=== PATIENT | female | born 1975 | race Two or more races ===

== ENCOUNTER 2022-05-20 22:30 | Emergency (ER) | payer OTHER ==
[~2022-05-20] VITALS: Ht 172.7 cm; Wt 108.0 kg
--- NOTE | 2022-05-20 23:50 | NUR ---
TO ER BED 1. NEL [id number] FROM HOME C/O ABD PAIN SINCE 1829. +NAUSEA, DIARRHEA. PT IS ALERT AND ORIENTED. RR EVEN AND NON LABORED. CONNECTED TO MONITOR
--- NOTE | 2022-05-20 23:57 | NUR ---
URINE COLLECTED AND SENT TO LAB
[2022-05-21] MEDS ORDERED: ONDANSETRON HCL/PF 4 MG/2 ML VIAL IVP ONE
[2022-05-21] MEDS ORDERED: IV NS 0.9% 500 ML BAG IV ONE
[2022-05-21] MEDS ORDERED: KETOROLAC TROMETHAMINE INJ 30 MG/ML VIAL IV ONE
[2022-05-21] MEDS ORDERED: ONDANSETRON HCL/PF 4 MG/2 ML VIAL ONE (00:07)
[2022-05-21] MEDS ORDERED: KETOROLAC TROMETHAMINE INJ 30 MG/ML VIAL ONE (00:07)
[2022-05-21 00:21] LABS: BILIRUBIN,URINE NEGATIVE (NEGATIVE); COLOR,URINE YELLOW (YELLOW); LEUKOCYTE ESTERASE ,URINE NEGATIVE (NEGATIVE); NITRITE, URINE NEGATIVE (NEGATIVE); PH,URINE 7.5 (5.0-8.0); PROTEIN,URINE NEGATIVE (NEGATIVE); UGLUCOSE NEGATIVE (NEGATIVE); UROBILINOGEN,URINE 0.2 EU/dL (0.2)
[2022-05-21 00:27] LABS: BASOPHILS % (AUTO) 0.5 % (0.0-2.0); EOSINOPHILS % (AUTO) 2.9 % (0.0-6.0); HEMATOCRIT 37 % (33-45); HEMOGLOBIN 12.2 g/dL (11.5-14.8); LYMPHOCYTES # (AUTO) 1.4 K/uL (0.8-4.8); MEAN CORPUSCULAR HGB CONC 33 g/dl (31.0-36.0); MEAN CORPUSCULAR VOLUME 103 fL (82-100); MONOCYTES # (AUTO) 0.4 K/uL (0.1-1.30); MONOCYTES % (AUTO) 7.2 % (2.0-12.0); NEUTROPHILS # (AUTO) 3.4 K/uL (1.8-8.9); NEUTROPHILS % (AUTO) 63.4 % (43.0-81.0); PLATELET COUNT (AUTO) 207 K/uL (150-450); RED BLOOD CELL COUNT(AUTO) 3.59 MIL/uL (4.0-5.2); WHITE BLOOD COUNT (AUTO) 5.4 K/uL (4.3-11.0)
--- NOTE | 2022-05-21 00:37 | NUR ---
[facility]
--- NOTE | 2022-05-21 00:37 | NUR ---
IV EDUIN [facility], [facility]
[2022-05-21 00:40] LABS: CALCIUM, SERUM 8.5 mg/dL (8.5-10.1); CREATININE 0.9 mg/dL (0.6-1.3); POTASSIUM 3.8 mmol/L (3.5-5.1)
[2022-05-21 00:43] LABS: ALBUMIN 3.5 g/dL (3.4-5.0); BILIRUBIN,DIRECT 0.1 mg/dL (0.0-0.2); BILIRUBIN,TOTAL 0.2 mg/dL (0.2-1.0)
--- NOTE | 2022-05-21 00:45 | NUR ---
PT BACK FROM CT VIA GURNEY WITHOUT INCIDENT
[2022-05-21 01:14] LABS: BACTERIA,URINE Rare /HPF (None Seen); SQUAMOUS EPITHELIAL CELL,UR Rare /HPF (None Seen); WBC,URINE 0-2 /HPF (0-3)
--- NOTE | 2022-05-21 02:10 | NUR ---
IV removed. Catheter intact and site benign. Pressure and 4x4 applied to site. No bleeding noted.
--- NOTE | 2022-05-21 02:10 | NUR ---
Patient discharged to home in stable condition. Written and verbal after care instructions given. Patient verbalizes understanding of instruction.
[2022-05-21 02:31] VITALS: BP 151/90
== END 2022-05-21 02:31 | disposition home or self-care (01) ==
LOC: ER 22:32
DX: R10.12 Left upper quadrant pain (principal); R11.0 Nausea; Z88.8 Allergy status to other drugs, medicaments and biological substances
CPT/HCPCS: 99284; 74176; 85025; 80048; 83690; 80076; 81001; 36415; 85730; 96374; 96375; J1885; J2405; J7040

== ENCOUNTER 2022-05-31 01:26 | Emergency (ER) | payer OTHER ==
[~2022-05-31] VITALS: Ht 172.7 cm; Wt 95.3 kg
--- NOTE | 2022-05-31 01:55 | NUR ---
TO ER BED 3. [id number] FROM HOME FOR CONSTIPATION. PT IS ALERT AND ORIENTED. RR EVEN AND NON LABORED. CONNECTED TO MONITOR
--- NOTE | 2022-05-31 02:24 | NUR ---
SECTION LEADER SCREEN PRINTING AT PT'S BEDSIDE
[2022-05-31] MEDS ORDERED: MINERAL OIL 133 ML (PYXIS) 1 EA ENEMA RC ONE ×2 (03:00→03:11)
[2022-05-31] MEDS ORDERED: NA PHOS,M-B/NA PHOS,DI-BA 1 EA ENEMA RC ONE (03:10)
--- NOTE | 2022-05-31 03:33 | NUR ---
PT AMBULATED TO BATHROOM, STEADY GAIT NOTED
--- NOTE | 2022-05-31 03:40 | NUR ---
PT REPORTED TO HAVE A BOWEL MOVEMENT
[2022-05-31] MEDS ORDERED: BISA-79 PO (03:52)
[2022-05-31] MEDS ORDERED: POLY17PO4 PO (03:52)
--- NOTE | 2022-05-31 04:00 | NUR ---
Patient discharged to home in stable condition. Written and verbal after care instructions given. Patient verbalizes understanding of instruction.
[2022-05-31 04:22] VITALS: BP 169/89
== END 2022-05-31 04:23 | disposition home or self-care (01) ==
LOC: ER 01:32
DX: K59.00 Constipation, unspecified (principal); Z88.0 Allergy status to penicillin; Z88.8 Allergy status to other drugs, medicaments and biological substances; Z60.2 Problems related to living alone; Z79.899 Other long term (current) drug therapy
CPT/HCPCS: 74018

== ENCOUNTER 2022-12-27 01:52 | Emergency (ER) | payer OTHER ==
[~2022-12-27] VITALS: Ht 172.7 cm; Wt 99.8 kg
[~2022-12-27 01:52] MED LIST: BISA-79 PO; POLY17PO4 PO
--- NOTE | 2022-12-27 02:09 | NUR ---
[id number] FROM HOME C/O LOWER ABD PAIN X3 DAYS & VAGINAL BLEEDING IUD INSERTED MARCH
--- NOTE | 2022-12-27 02:11 | NUR ---
DR. HOLLIS AT BEDSIDE
--- NOTE | 2022-12-27 02:14 | NUR ---
URINE COLLECTED SENT TO LAB
[2022-12-27] MEDS ORDERED: PANTOPRAZOLE 40 MG VIAL ONE (02:18)
[2022-12-27] MEDS ORDERED: KETOROLAC TROMETHAMINE 15 MG/ML VIAL ONE (02:18)
[2022-12-27] MEDS ORDERED: PANTOPRAZOLE 40 MG VIAL IV ONE (02:30)
[2022-12-27] MEDS ORDERED: KETOROLAC TROMETHAMINE INJ 30 MG/ML VIAL IV ONE (02:30)
--- NOTE | 2022-12-27 02:31 | NUR ---
20G IV STARTED ON R AC. BLOOD COLLECTED SENT TO LAB
[2022-12-27 02:40] LABS: BASOPHILS % (AUTO) 0.6 % (0.0-2.0); EOSINOPHILS % (AUTO) 2.9 % (0.0-6.0); HEMATOCRIT 39 % (33-45); HEMOGLOBIN 12.6 g/dL (11.5-14.8); LYMPHOCYTES # (AUTO) 1.6 K/uL (0.8-4.8); LYMPHOCYTES % (AUTO) 38.3 % (20.0-44.0); MEAN CORPUSCULAR HGB CONC 33 g/dl (31.0-36.0); MEAN CORPUSCULAR VOLUME 101 fL (82-100); MONOCYTES # (AUTO) 0.3 K/uL (0.1-1.30); MONOCYTES % (AUTO) 7.6 % (2.0-12.0); NEUTROPHILS # (AUTO) 2.2 K/uL (1.8-8.9); NEUTROPHILS % (AUTO) 50.6 % (43.0-81.0); PLATELET COUNT (AUTO) 193 K/uL (150-450); RED BLOOD CELL COUNT(AUTO) 3.85 MIL/uL (4.0-5.2); WHITE BLOOD COUNT (AUTO) 4.3 K/uL (4.3-11.0)
[2022-12-27 02:54] LABS: CALCIUM, SERUM 8.9 mg/dL (8.5-10.1); POTASSIUM 3.5 mmol/L (3.5-5.1)
--- NOTE | 2022-12-27 02:56 | NUR ---
X-RAY AT BEDSIDE
[2022-12-27 03:00] LABS: ALBUMIN 3.9 g/dL (3.4-5.0); BILIRUBIN,TOTAL 0.2 mg/dL (0.2-1.0); TOTAL PROTEIN, SERUM 7.4 g/dL (6.4-8.2)
--- NOTE | 2022-12-27 03:25 | NUR ---
[employer] EXAMINER AT BEDSIDE
[2022-12-27 03:51] LABS: BILIRUBIN,URINE NEGATIVE (NEGATIVE); COLOR,URINE YELLOW (YELLOW); LEUKOCYTE ESTERASE ,URINE NEGATIVE (NEGATIVE); NITRITE, URINE NEGATIVE (NEGATIVE); PH,URINE 6.5 (5.0-8.0); PROTEIN,URINE NEGATIVE (NEGATIVE); UGLUCOSE NEGATIVE (NEGATIVE); UROBILINOGEN,URINE 0.2 EU/dL (0.2)
[2022-12-27 04:15] LABS: BACTERIA,URINE Few /HPF (None Seen); WBC,URINE 0-2 /HPF (0-3)
[2022-12-27] MEDS ORDERED: PANT40TA2 PO (05:39)
--- NOTE | 2022-12-27 05:57 | NUR ---
Patient discharged to home in stable condition. Written and verbal after care instructions given. Patient verbalizes understanding of instruction.IV removed. Catheter intact and site benign. Pressure and 4x4 applied to site. No bleeding noted.
[2022-12-27 05:58] VITALS: BP 132/88
== END 2022-12-27 05:58 | disposition home or self-care (01) ==
LOC: ER 02:00
DX: R10.10 Upper abdominal pain, unspecified (principal); R07.89 Other chest pain; Z88.0 Allergy status to penicillin; Z88.1 Allergy status to other antibiotic agents; Z79.899 Other long term (current) drug therapy
CPT/HCPCS: 99285; 96374; 76700; 71045; 96375; 93005; 85025; 80048; 83690; 80076; 84703; 81001; 36415; C9113; J1885

== ENCOUNTER 2023-07-07 02:32 | Emergency (ER) | payer OTHER, MEDICAID ==
[~2023-07-07] VITALS: Ht 167.6 cm; Wt 106.1 kg
[~2023-07-07 02:32] MED LIST changes: +PANT40TA2 PO
[2023-07-07] MEDS ORDERED: NAPROXEN 500 MG TABLET PO STA (02:41)
[2023-07-07] MEDS ORDERED: NAPROXEN 250 MG TABLET ONE (02:59)
[2023-07-07] MEDS ORDERED: diphenhydrAMINE HCL 25 MG CAPSULE ONE (02:59)
[2023-07-07 03:00] VITALS: BP 158/98; TEMP 98.6; O2SAT 99
[2023-07-07] MEDS ORDERED: diphenhydrAMINE HCL 25 MG CAPSULE PO ONE (03:00)
[2023-07-07] MEDS ORDERED: NAPR-1164 PO (04:06)
== END 2023-07-07 04:51 | disposition home or self-care (01) ==
LOC: ER 02:39
DX: G43.909 Migraine, unspecified, not intractable, without status migrainosus (principal); Z79.899 Other long term (current) drug therapy; Z60.2 Problems related to living alone; Z88.0 Allergy status to penicillin; Z88.1 Allergy status to other antibiotic agents
CPT/HCPCS: 99283; Q0163

== ENCOUNTER 2024-01-23 00:42 | Emergency (ER) | payer OTHER, MEDICAID ==
[~2024-01-23] VITALS: Ht 167.6 cm; Wt 90.7 kg
[~2024-01-23 00:42] MED LIST changes: +NAPR-1164 PO
[2024-01-23 01:31] LABS: BASOPHILS % (AUTO) 0.6 % (0.0-2.0); EOSINOPHILS # (AUTO) 0.2 K/uL (0.0-0.7); EOSINOPHILS % (AUTO) 3.5 % (0.0-6.0); HEMATOCRIT 34 % (33-45); HEMOGLOBIN 11.3 g/dL (11.5-14.8); LYMPHOCYTES # (AUTO) 1.3 K/uL (0.8-4.8); LYMPHOCYTES % (AUTO) 30.4 % (20.0-44.0); MEAN CORPUSCULAR HEMOGLOBIN 34 PG (26.0-33.0); MEAN CORPUSCULAR HGB CONC 33 g/dl (31.0-36.0); MEAN CORPUSCULAR VOLUME 102 fL (82-100); MONOCYTES # (AUTO) 0.4 K/uL (0.1-1.30); MONOCYTES % (AUTO) 9.2 % (2.0-12.0); NEUTROPHILS # (AUTO) 2.5 K/uL (1.8-8.9); NEUTROPHILS % (AUTO) 56.3 % (43.0-81.0); PLATELET COUNT (AUTO) 197 K/uL (150-450); RED BLOOD CELL COUNT(AUTO) 3.33 MIL/uL (4.0-5.2); RED CELL DISTRIBUTION WIDTH 13.5 % (11.5-15.0); WHITE BLOOD COUNT (AUTO) 4.4 K/uL (4.3-11.0)
[2024-01-23 01:43] LABS: INR 2.23 (0.91-1.10); PROTHROMBIN TIME 22.4 SECS (9.2-11.1)
[2024-01-23 01:47] LABS: LACTIC ACID 1.4 mmol/L (0.4-2.0)
[2024-01-23 01:52] LABS: CALCIUM, SERUM 8.5 mg/dL (8.5-10.1); CREATININE 1.2 mg/dL (0.6-1.3); POTASSIUM 3.2 mmol/L (3.5-5.1)
[2024-01-23 01:58] LABS: ALBUMIN 3.2 g/dL (3.4-5.0); BILIRUBIN,TOTAL 0.2 mg/dL (0.2-1.0)
[2024-01-23] MEDS ORDERED: POTASSIUM CHLORIDE 20 MEQ TAB.PRT.SR PO ONE (02:23)
[2024-01-23] MEDS: POTASSIUM CHLORIDE 20 MEQ TAB.PRT.SR PO ONE (02:24)
[2024-01-23 03:56] LABS: APPEARANCE,URINE CLEAR (CLEAR); BILIRUBIN,URINE NEGATIVE (NEGATIVE); BLOOD, URINE NEGATIVE Ery/uL (NEGATIVE); COLOR,URINE YELLOW (YELLOW); KETONES,URINE NEGATIVE (NEGATIVE); LEUKOCYTE ESTERASE ,URINE NEGATIVE (NEGATIVE); NITRITE, URINE NEGATIVE (NEGATIVE); PROTEIN,URINE NEGATIVE (NEGATIVE); UGLUCOSE NEGATIVE (NEGATIVE); UROBILINOGEN,URINE 0.2 EU/dL (0.2)
[2024-01-23] MEDS ORDERED: MAGN296S72 PO (04:18)
[2024-01-23 04:45] VITALS: BP 134/81; TEMP 98.4; O2SAT 98
== END 2024-01-23 04:45 | disposition home or self-care (01) ==
LOC: ER 00:46
DX: K59.00 Constipation, unspecified (principal); R10.10 Upper abdominal pain, unspecified; I10 Essential (primary) hypertension; Z86.69 Personal history of other diseases of the nervous system and sense organs; Z88.0 Allergy status to penicillin; Z60.2 Problems related to living alone
CPT/HCPCS: 36415; 71045-TC; 80053-TC; 83605-TC; 83690-TC; 83880; 84484-TC; 85025-TC; 85610-TC

== ENCOUNTER 2025-01-12 02:42 | Emergency (ER) | payer OTHER, MEDICAID ==
[~2025-01-12] VITALS: Ht 167.6 cm; Wt 106.6 kg
[~2025-01-12 02:42] MED LIST changes: +MAGN296S72 PO
[2025-01-12 03:42] LABS: BASOPHILS % (AUTO) 0.4 % (0.0-2.0); EOSINOPHILS # (AUTO) 0.1 K/uL (0.0-0.7); EOSINOPHILS % (AUTO) 3.2 % (0.0-6.0); HEMATOCRIT 34 % (33-45); HEMOGLOBIN 11.5 g/dL (11.5-14.8); LYMPHOCYTES # (AUTO) 1.7 K/uL (0.8-4.8); LYMPHOCYTES % (AUTO) 42.5 % (20.0-44.0); MEAN CORPUSCULAR HEMOGLOBIN 34 PG (26.0-33.0); MEAN CORPUSCULAR HGB CONC 34 g/dl (31.0-36.0); MEAN CORPUSCULAR VOLUME 101 fL (82-100); MONOCYTES # (AUTO) 0.3 K/uL (0.1-1.30); MONOCYTES % (AUTO) 8.9 % (2.0-12.0); NEUTROPHILS # (AUTO) 1.8 K/uL (1.8-8.9); PLATELET COUNT (AUTO) 189 K/uL (150-450); RED BLOOD CELL COUNT(AUTO) 3.38 MIL/uL (4.0-5.2); RED CELL DISTRIBUTION WIDTH 14.1 % (11.5-15.0); WHITE BLOOD COUNT (AUTO) 3.9 K/uL (4.3-11.0)
[2025-01-12 03:51] LABS: CALCIUM, SERUM 8.6 mg/dL (8.5-10.1); CARBON DIOXIDE 26 mmol/L (21-32); CHLORIDE 109 mmol/L (98-107); CREATININE 1.1 mg/dL (0.6-1.3); GLUCOSE 88 mg/dL (74-106); POTASSIUM 4.5 mmol/L (3.5-5.1); SODIUM SERUM 142 mmol/L (136-145); UREA NITROGEN, BLOOD 16 mg/dL (7-18)
[2025-01-12 04:01] LABS: ALANINE AMINOTRANSFERASE 22 U/L (12-78); ALBUMIN 3.3 g/dL (3.4-5.0); ALKALINE PHOSPHATASE 104 U/L (46-116); ASPARTATE AMINOTRANSFERASE 20 U/L (15-37); BILIRUBIN,TOTAL 0.3 mg/dL (0.2-1.0); NT-PRO BNP 28 pg/mL (0-125)
[2025-01-12 06:30] VITALS: BP 144/82; TEMP 98.4; O2SAT 99
== END 2025-01-12 06:31 | disposition home or self-care (01) ==
LOC: ER 02:48
DX: R07.89 Other chest pain (principal); I10 Essential (primary) hypertension; Z79.899 Other long term (current) drug therapy; Z88.0 Allergy status to penicillin; Z87.19 Personal history of other diseases of the digestive system; Z86.59 Personal history of other mental and behavioral disorders; Z60.2 Problems related to living alone; Z86.69 Personal history of other diseases of the nervous system and sense organs
CPT/HCPCS: 36415; 71045-TC; 80048-TC; 80076-TC; 83880; 84484-TC; 85025-TC